=== PATIENT | male | born 1955 | race Two or more races ===

== ENCOUNTER → 2022-10-24 | Outpatient (CLI) | payer OTHER ==
[~2022-10-24] VITALS: Ht 167.6 cm; Wt 61.2 kg
== END | disposition home or self-care (01) ==
LOC: Rad HDHVI 09:40
PROVIDERS: ATTEND Internal Medicine Cardiovascular Disease
DX: I25.10 Atherosclerotic heart disease of native coronary artery without angina pectoris (principal); R07.9 Chest pain, unspecified; I25.2 Old myocardial infarction; I10 Essential (primary) hypertension; E11.9 Type 2 diabetes mellitus without complications; R42 Dizziness and giddiness; E78.5 Hyperlipidemia, unspecified; Z82.49 Family history of ischemic heart disease and other diseases of the circulatory system; Z95.1 Presence of aortocoronary bypass graft
CPT/HCPCS: 78452; 93017; 96374; A9500

== ENCOUNTER → 2022-10-25 | Outpatient (CLI) | payer OTHER | END | disposition home or self-care (01) | LOC: Rad HDHVI 07:54 | PROVIDERS: ATTEND Internal Medicine Cardiovascular Disease | DX: I08.1 Rheumatic disorders of both mitral and tricuspid valves (principal); I10 Essential (primary) hypertension | CPT/HCPCS: 93306 ==

== ENCOUNTER → 2023-02-27 | Outpatient (CLI) | payer OTHER ==
[~2023-02-27] MED LIST: ASPI-498 OR; ATOR-47 PO; CARV3.1240 PO; CLOP75TA70 PO; ISO60SRT PO; LOSA100T58 PO; METF-370 PO; TRAZ-227 PO
[2023-02-27 08:15] VITALS: BP 159/76; PULSE 55; RESP 20; O2SAT 99
[2023-02-27 08:30] VITALS: BP 158/62; PULSE 55; RESP 20; O2SAT 99
== END | disposition home or self-care (01) ==
LOC: CHF HDHVI 08:01
PROVIDERS: ATTEND Internal Medicine Cardiovascular Disease
DX: Z01.818 Encounter for other preprocedural examination (principal); I11.0 Hypertensive heart disease with heart failure; I50.33 Acute on chronic diastolic (congestive) heart failure; I20.0 Unstable angina
CPT/HCPCS: 93005; G0463

== ENCOUNTER 2023-03-02 06:56 | Day surgery (SDC) | payer OTHER, MEDICAID ==
[2023-02-27 08:58] LABS: Basophils # (auto) 0 10 ^3/uL (0-0.2); Basophils % (auto) 0.2 % (0.0-2.0); Eosinophils # (auto) 0 10 ^3/uL (0-0.8); Eosinophils % (auto) 0.3 % (0.0-7.0); Hematocrit 41.9 % (41.0-53.0); Hemoglobin 14.3 g/dL (13.5-17.5); Lymphocytes # (auto) 2.1 10 ^3/uL (0.4-5.4); Mean Corpuscular Hemoglobin 29.3 pg (28.0-32.0); Mean Corpuscular Hgb Conc. 34.1 g/dL (32.0-36.0); Mean Corpuscular Volume 85.8 fL (80.0-100.0); Monocytes # (auto) 0.4 10 ^3/uL (0-1.3); Monocytes % (auto) 6.4 % (0.0-12.0); Neutrophils # (auto) 3.9 10 ^3/uL (1.6-8.6); Neutrophils % (auto) 60.1 % (37.0-80.0); Nucleated Red Blood Cells % 0.1 %; Red Blood Cells 4.88 10^6/uL (4.5-5.90); White Blood Cell 6.5 10^3/uL (4.4-10.8)
[2023-02-27 09:20] LABS: INR 1.06 (0.9-1.15); Partial Thromboplastin Time 26.8 SEC (24.5-34.5); Prothrombin Time 11.1 sec (9.3-11.8)
[2023-02-27 09:32] LABS: Potassium 4.5 mmol/L (3.5-5.1)
[2023-02-27 09:39] LABS: BUN/Creatinine Ratio 18.4 (10.0-20.0); Calcium 9.1 mg/dL (8.5-10.1)
[2023-03-02] VITALS (7 sets, daily range): BP systolic 118–129; BP diastolic 58–70; PULSE 48–56; RESP 12; O2SAT 94–97
[~2023-03-02] VITALS: Ht 167.6 cm; Wt 61.2 kg
[2023-03-02] MEDS ORDERED: IOHEXOL 350 MG/ML 100ML IJ ONE ×2 (07:41→09:44)
[2023-03-02] MEDS ORDERED: fentaNYL CITRATE 100 MCG/2 ML VL ONE (09:43)
[2023-03-02] MEDS ORDERED: LIDOCAINE 2%HCL (LOCAL ANESTH.) INJ 20ML MDV ONE (09:44)
[2023-03-02] MEDS ORDERED: SODIUM CHL 0.9% 50 ML ONE (09:44)
[2023-03-02] MEDS ORDERED: MIDAZOLAM HCL 2MG/2ML 2ml VIAL (1mg/ml) ONE (09:44)
== END 2023-03-02 11:40 | disposition home or self-care (01) ==
LOC: CATH 06:56
PROVIDERS: ATTEND Internal Medicine Cardiovascular Disease
DX: I25.10 Atherosclerotic heart disease of native coronary artery without angina pectoris (principal); I25.2 Old myocardial infarction; E78.5 Hyperlipidemia, unspecified; E11.40 Type 2 diabetes mellitus with diabetic neuropathy, unspecified; Z88.0 Allergy status to penicillin; Z82.49 Family history of ischemic heart disease and other diseases of the circulatory system; Z79.82 Long term (current) use of aspirin; Z79.84 Long term (current) use of oral hypoglycemic drugs; Z79.899 Other long term (current) drug therapy
CPT/HCPCS: 36415; 80048; 85025; 85610; 85730; 93459; C1894; J1644; J2250; J3010; J7030; Q9967; 99152

== ENCOUNTER 2023-05-27 10:38 | Emergency (ER) | payer OTHER, MEDICAID ==
[~2023-05-27] VITALS: Ht 167.6 cm; Wt 63.4 kg
[2023-05-27] MEDS ORDERED: SODIUM CHLORIDE 0.9% 1,000 ML IV ONE (11:00)
[2023-05-27] MEDS ORDERED: ASPirin 81 mg TAB PO ONE (11:00)
[2023-05-27] MEDS ORDERED: cloNIDine HCL 0.1 MG TAB PO ONE (11:00)
[2023-05-27 11:18] LABS: Basophils # (auto) 0 10 ^3/uL (0-0.2); Basophils % (auto) 0.2 % (0.0-2.0); Eosinophils # (auto) 0 10 ^3/uL (0-0.8); Eosinophils % (auto) 0.2 % (0.0-7.0); Hematocrit 43.6 % (41.0-53.0); Hemoglobin 14.7 g/dL (13.5-17.5); Lymphocytes # (auto) 1.1 10 ^3/uL (0.4-5.4); Mean Corpuscular Hemoglobin 29.4 pg (28.0-32.0); Mean Corpuscular Hgb Conc. 33.6 g/dL (32.0-36.0); Mean Corpuscular Volume 87.3 fL (80.0-100.0); Monocytes # (auto) 0.3 10 ^3/uL (0-1.3); Monocytes % (auto) 5.8 % (0.0-12.0); Neutrophils # (auto) 3.4 10 ^3/uL (1.6-8.6); Neutrophils % (auto) 71.8 % (37.0-80.0); Nucleated Red Blood Cells % 0.1 %; Red Blood Cells 4.99 10^6/uL (4.5-5.90); Red Cell Distribution Width 14.3 % (11.8-14.3); White Blood Cell 4.8 10^3/uL (4.4-10.8)
[2023-05-27 11:20] LABS: Alanine Aminotransferase 35 U/L (7-40); Alkaline Phosphatase 90 U/L (46-116); Aspartate Aminotransferase 19 U/L (13-40); Calcium 9.5 mg/dL (8.7-10.4)
[2023-05-27 11:21] LABS: Albumin 4.9 g/dL (3.2-4.8); Anion Gap 6 (5-15); BUN/Creatinine Ratio 16.3 (10.0-20.0); Bilirubin, Total 0.8 mg/dL (0.2-1.0); Blood Urea Nitrogen 14 mg/dL (9-23); Carbon Dioxide 27 mmol/L (20-30); Chloride 103 mmol/L (98-107); Glucose 126 mg/dL (74-106); Magnesium 1.9 mg/dL (1.6-2.6); Potassium 4.2 mmol/L (3.5-5.1); Sodium 136 mmol/L (136-145); Total Protein 7.3 g/dL (5.7-8.2)
[2023-05-27 11:26] LABS: INR 1.08 (0.9-1.15); Partial Thromboplastin Time 28.7 SEC (24.5-34.5); Prothrombin Time 11.3 sec (9.3-11.8)
[2023-05-27 11:31] LABS: Urine Bacteria NONE SEEN /hpf (None Seen); Urine Blood Negative /uL (Negative); Urine Clarity Clear (Clear); Urine Color Colorless (Yellow); Urine Protein, UAD Negative (Negative); Urine Specific Gravity 1.011 (1.001-1.035); Urine Urobilinogen Normal (Negative); Urine WBC <1 /hpf (0 - 3); Urine pH 5.5 (5.0-8.0)
[2023-05-27 12:33] VITALS: BP 125/65
[2023-05-27 12:34] VITALS: PULSE 55; RESP 16; O2SAT 99
== END 2023-05-27 12:46 | disposition home or self-care (01) ==
LOC: ER 10:38
DX: I10 Essential (primary) hypertension (principal); E11.9 Type 2 diabetes mellitus without complications; E78.5 Hyperlipidemia, unspecified; I25.810 Atherosclerosis of coronary artery bypass graft(s) without angina pectoris; Z79.01 Long term (current) use of anticoagulants
CPT/HCPCS: 36415; 71046; 80053; 81001; 83735; 84443; 84484; 85025; 85610; 85730; 93005

== ENCOUNTER → 2023-05-31 | Outpatient (CLI) | payer OTHER ==
[2023-05-31 10:05] VITALS: BP 166/76; PULSE 70; RESP 16; O2SAT 96
[2023-05-31 10:32] VITALS: BP 150/74; PULSE 65; RESP 16; O2SAT 96
== END | disposition home or self-care (01) ==
LOC: CHF HDHVI 09:55
PROVIDERS: ATTEND Internal Medicine Cardiovascular Disease
DX: Z01.818 Encounter for other preprocedural examination (principal); R94.31 Abnormal electrocardiogram [ECG] [EKG]; I11.0 Hypertensive heart disease with heart failure; I50.43 Acute on chronic combined systolic (congestive) and diastolic (congestive) heart failure; R00.2 Palpitations; R00.1 Bradycardia, unspecified; I25.5 Ischemic cardiomyopathy
CPT/HCPCS: 93005; G0463

== ENCOUNTER 2023-06-01 09:55 | Day surgery (SDC) | payer OTHER, MEDICAID ==
[~2023-06-01] VITALS: Ht 167.6 cm; Wt 64.4 kg
[2023-06-01] VITALS (7 sets, daily range): BP systolic 133–144; BP diastolic 74–86; PULSE 60–65; RESP 11–18; TEMP 98; O2SAT 96–97
[~2023-06-01 09:55] MED LIST changes: -CARV3.1240 PO
[2023-06-01] MEDS ORDERED: VANCOMYCIN 1GM/250ML 250 ML IV ONE (10:30)
[2023-06-01] MEDS ORDERED: LIDOCAINE 2%HCL (LOCAL ANESTH.) INJ 20ML MDV ONE (14:36)
[2023-06-01] MEDS ORDERED: MIDAZOLAM HCL 2MG/2ML 2ml VIAL (1mg/ml) ONE (14:44)
[2023-06-01] MEDS ORDERED: VANCOMYCIN HCL 1000 MG VL ONE (14:44)
[2023-06-01] MEDS ORDERED: fentaNYL CITRATE 100 MCG/2 ML VL ONE (14:44)
== END 2023-06-01 17:15 | disposition home or self-care (01) ==
LOC: CATH 09:55
PROVIDERS: ATTEND Internal Medicine Cardiovascular Disease
DX: I49.5 Sick sinus syndrome (principal); I11.9 Hypertensive heart disease without heart failure; I25.2 Old myocardial infarction; I10 Essential (primary) hypertension; Z95.1 Presence of aortocoronary bypass graft; I44.0 Atrioventricular block, first degree; R06.02 Shortness of breath
CPT/HCPCS: 33208; 71045; C1785; C1898; J2250; J3010; J3370; J7030; 99152; 99153

== ENCOUNTER → 2023-07-14 | Outpatient (CLI) | payer MEDICAID, OTHER | END | disposition home or self-care (01) | LOC: Rad HDHVI 12:45 | PROVIDERS: ATTEND Internal Medicine Cardiovascular Disease | DX: I11.9 Hypertensive heart disease without heart failure (principal); R00.2 Palpitations | CPT/HCPCS: 93306 ==

== ENCOUNTER → 2024-05-17 | Outpatient (CLI) | payer OTHER ==
[~2024-05-17] MED LIST changes: +LOSA-535 PO; -LOSA100T58 PO
== END | disposition home or self-care (01) ==
LOC: Rad HDHVI 08:46
PROVIDERS: ATTEND Internal Medicine Cardiovascular Disease
DX: I11.0 Hypertensive heart disease with heart failure (principal); I50.23 Acute on chronic systolic (congestive) heart failure
CPT/HCPCS: 93306

== ENCOUNTER → 2024-07-03 | Outpatient (CLI) | payer OTHER, MEDICAID ==
[~2024-07-03] VITALS: Ht 167.6 cm; Wt 65.8 kg
--- NOTE | 2024-07-09 13:51 | DVHSR ---
APPROVED REPORT Exam: Nuclear Stress Test Indication: Pre-Operative CV evaluation Ht: 5 ft 6 in Wt: 143 lbs BSA: 1.73 m2 HR: 74 bpm BP: 163/82 mmHg BMI: 23.07 Rhythm: NSR Medical History Medical History: VA, CABG, Stent, Pacemaker, HTN, Hyperlipidemia, Diabetes, Palpitations, Chest pain, CHF Medications: Atorvastatin, Losartan, Clopidogrel, Metformin, Aspirin, Meclizine, Coreg, Nitro, Clonid ine, Magnesium Glycinate Allergies: Ampicillin Cardiac Risk Factors: FHX of CAD Stress Test Details Stress Test: Exercise stress testing was performed using a Vega protocol. HR Resting HR: 74 bpmMax Heart Rate (APMHR): 152.989330 bpm Max HR Achieved: 137 bpmTarget HR (85% APMHR): 129.690788 bpm % of APMHR: 90.13 Recovery HR: 75 bpm HR response to stress: Normal HR response to stress BP Resting BP: 157/79 mmHg Max BP: 215/110 mmHg Recovery BP: 146/77 mmHg BP response to stress: Resting hypertenstion- exaggerated response. ECG Resting ECG: Sinus Rhythm Stress ECG: Sinus Tachycardia Arrhythmia: APC's, VPC's Recovery ECG: Sinus Rhythm Clinical Reason for Termination: Target HR achieved Stress Symptoms: None Exercise duration: 7 min 30 sec Exercise capacity: 10.1 METs Stress ECG Conclusion CLINICAL RESPONSE NON ISCHEMIC ECG RESPONSE NON ISCHEMIC EF >55% LESS THAN 10% LIKELIHOOD FOR STRESS INDUCED ISCHEMIA NM EXAM: Myocardial Perfusion REST/STRESS Imaging Protocol: Rest Tc-99m/Stress Tc-99m 1 day Resting Data Rest SPECT myocardial perfusion imaging was performed in supine position 30 minutes following the int ravenous injection of 10.82 mCi of Tc-99m Sestamibi. Time of rest injection: 1305 Time of rest imagin Administration Route: IV Administration Site: Right AC Exercise Stress At peak stress, the patient was injected intravenously with 33 mCi of Tc-99m Sestamibi. Time of stress injection: 1404 Time of stress imagin Administration Route: IV Administration Site: Right AC Heart Rate at time of stress injection: 133 bpm. Patient continued to exercise for 0.5 minute(s). Gated Stress SPECT was performed 15 minutes after stress injection. The images were gated to evaluate regional wall motion and calculate left ventricular ejection fracti on. Comments Cardiolite injection at 7 minutes, 13 seconds into test. Study Data Post stress, the left ventricular ejection was 56%.. Nuclear Conclusion CLINICAL RESPONSE NON ISCHEMIC ECG RESPONSE NON ISCHEMIC EF >55% LESS THAN 10% LIKELIHOOD FOR STRESS INDUCED ISCHEMIA
== END | disposition home or self-care (01) ==
LOC: Rad HDHVI 12:34
PROVIDERS: ATTEND Internal Medicine Cardiovascular Disease
DX: Z01.810 Encounter for preprocedural cardiovascular examination (principal); R00.2 Palpitations; I25.10 Atherosclerotic heart disease of native coronary artery without angina pectoris; R07.89 Other chest pain; E78.5 Hyperlipidemia, unspecified; E11.9 Type 2 diabetes mellitus without complications; I25.2 Old myocardial infarction; Z95.820 Peripheral vascular angioplasty status with implants and grafts; Z95.1 Presence of aortocoronary bypass graft; Z82.49 Family history of ischemic heart disease and other diseases of the circulatory system; Z95.0 Presence of cardiac pacemaker; Z88.0 Allergy status to penicillin
CPT/HCPCS: 78452; 93017; 96374; A9500

== ENCOUNTER 2024-07-17 17:23 | Emergency (ER) | payer OTHER, MEDICAID ==
[~2024-07-17] VITALS: Ht 167.6 cm; Wt 66.0 kg
[2024-07-17 17:30] VITALS: BP 141/88; RESP 16; TEMP 98.5; O2SAT 96
[2024-07-17 17:43] VITALS: PULSE 74
[2024-07-17 19:16] LABS: Basophils # (auto) 0 10 ^3/uL (0-0.2); Basophils % (auto) 0.2 % (0.0-2.0); Eosinophils # (auto) 0 10 ^3/uL (0-0.8); Eosinophils % (auto) 0.5 % (0.0-7.0); Hematocrit 40.3 % (41.0-53.0); Lymphocytes # (auto) 2.1 10 ^3/uL (0.4-5.4); Mean Corpuscular Hgb Conc. 34.7 g/dL (32.0-36.0); Mean Corpuscular Volume 89.2 fL (80.0-100.0); Monocytes # (auto) 0.4 10 ^3/uL (0-1.3); Neutrophils % (auto) 54.3 % (37.0-80.0); Nucleated Red Blood Cells % 0.1 %; Platelet Count (auto) 174 10^3/uL (140-450); Red Blood Cells 4.52 10^6/uL (4.5-5.90); Red Cell Distribution Width 13.1 % (11.8-14.3); White Blood Cell 5.6 10^3/uL (4.4-10.8)
[2024-07-17 19:38] LABS: Albumin 4.5 g/dL (3.2-4.8); Alkaline Phosphatase 98 U/L (46-116); Anion Gap 6 (5-15); Aspartate Aminotransferase 21 U/L (13-40); BUN/Creatinine Ratio 19.7 (10.0-20.0); Blood Urea Nitrogen 15 mg/dL (9-23); Calcium 10.2 mg/dL (8.7-10.4); Carbon Dioxide 29 mmol/L (20-31); Chloride 103 mmol/L (98-107); Glucose 94 mg/dL (74-106); Potassium 4.2 mmol/L (3.5-5.1); Sodium 138 mmol/L (136-145)
[2024-07-17 19:39] LABS: Bilirubin, Total 0.8 mg/dL (0.2-1.0); Total Protein 6.7 g/dL (5.7-8.2)
[2024-07-17 19:42] LABS: Alanine Aminotransferase 42 U/L (7-40)
--- NOTE | 2024-07-17 20:15 | ED.PDOC ---
History of Present Illness HPI Comments A 68 year old male brought in by EMS presents to the ED with a chief complaint of high blood pressure onset 4 days. Patient states he has been checking his BP at home and has been elevated the past 4 days. He has taken his BP medication but has not noticed any improvement. Patient has an appointment with Car diologist on 07/22/2024 for stress test results. He woke up today experiencing nausea, shortness of breath that have now resolved and is currently experiencing headache. He has a past medical history of HTN, HLD, DM and denies chest past, abdominal pain, SOB, N/V/D. No other symptoms or modifying factors present at this time. Chief Complaint: Dizziness Time Seen by MD: 20:06 Primary Care Provider: JANELL Camilo Notes: Medications, Allergies Allergies: Coded Allergies: Penicillins (Verified Allergy, Intermediate, 02/27/23) Home Meds Active Scripts Meclizine Hcl (Meclizine Hcl) 12.5 Mg Tab, 12.5 MG PO Q6HP PRN for 20 Days, #30 MG Prov:SHIVANI GARLAND MD 07/17/24 Reported Medications Trazodone Hcl (Trazodone Hcl) 50 Mg Tab, 50 MG PO HS for INSOMNIA, MG 02/27/23 Aspirin (ASPIRIN 81) 81 Mg Tab, 81 MG OR DAILY, TAB 02/27/23 Metformin Hydrochloride (Metformin Hcl) 500 Mg Tab, 500 MG PO DAILY for DIABETES for 30 Days, MG 02/27/23 Isosorbide Mononitrate (Isosorbide Mononitrate ER) 60 Mg Tab, 30 MG PO DAILY for ANGINA, TAB 02/27/23 Clopidogrel Bisulfate (CLOPIDOGREL) 75 Mg Tab, 75 MG PO DAILY for S/P CABG for 30 Days, MG 02/27/23 Losartan Potassium (Losartan Potassium) 100 Mg Tab, 100 MG PO DAILY for HTN for 30 Days, MG 02/27/23 Atorvastatin Calcium (ATORVASTATIN CALCIUM) 80 Mg Tab, 1 TAB PO DAILY for HIGH CHOLESTEROL, #30 TAB 5 Refills 02/27/23 Information Source: Patient Mode of Arrival: EMS Severity: Moderate Timing: Hours Duration: Since onset Prehospital treatment: None Past Medical History PAST MEDICAL HISTORY: DM, High Lipids, HTN Surgical History: Appendectomy, CABG Family History Family History: Unknown Social History Smoker: Non-Smoker Alcohol: Denies ETOH Use Drugs: Denies Drug Use Lives In: Home Constitutional: denies: chills, diaphoresis, fatigue, fever, malaise, sweats, weakness, others EENTM: denies: blurred vision, double vision, ear bleeding, ear discharge, ear drainage, ear pain, ear ringing, eye pain, eye redness, hearing loss, mouth pain, mouth swelling, nasal discharge, nose bleeding, nose congestion, nose pain, photophobia, tearing, throat pain, throat swelling, voice changes, others Respiratory: reports: shortness of breath; denies: cough, hemoptysis, orthopnea, SOB at rest, SOB with excertion, stridor, wheezing, others Cardiovascular: denies: chest pain, dizzy spells, diaphoresis, Dyspnea on e xertion, edema, irregular heart beat, left arm pain, lightheadedness, palpitations, PND, syncope, others Gastrointestinal: denies: abdomen distended, abdominal pain, blood streaked bowels, constipated, diarrhea, dysphagia, difficulty swallowing, hematemesis, melena, nausea, poor appetite, poor fluid intake, rectal bleeding, rectal pain, vomiting, others Genitourinary: denies: burning, dysuria, flank pain, frequency, hematuria, incontinence, penile discharge, penile sore, pain, testicle pain, testicle swelling, urgency, others Neurological: reports: dizziness, headache; denies: fainting, left sided numbness, left sided weakness, numbness, paresthesia, pre-existing deficit, right sided numbness, right sided weakness, seizure, speech problems, tingling, tremors, weakness, others Musculoskeletal: denies: back pain, gout, joint pain, joint swelling, muscle pain, muscle stiffness, neck pain, others Integumetry: denies: bruises, change in color, change in hair/nails, dryness, laceration, lesions, lumps, rash, wounds, others Allergic/Immunocompromised: denies: Difficulty Healing, Frequent Infections, Hives, Itching, others Hematologic/Lymphatic: denies: anemia, blood clots, easy bleeding, easy bruisin g, swollen glands, others Endocrine: denies: excessive hunger, excessive sweating, excessive thirst, excessive urination, flushing, intolerance to cold, intolerance to heat, unexplained weight gain, unexplained weight loss, others Psychiatric: denies: anxiety, bipolar disorder, depression, hopeless, panic disorder, schizophrenia, sleepless, suicidal, others All Other Systems: Reviewed and Negative Physical Exam General Appearance: No Apparent Distress, Normal HEENT: Normal ENT Inspection, Pharynx Normal, TMs Normal Neck: Full Range of Motion, Non-Tender, Normal, Normal Inspection Respiratory: Chest Non-Tender, Lungs Clear, No Accessory Muscle Use, No Respiratory Distress, Normal Breath Sounds Cardiovascular: No Edema, No JVD, No Murmur, No Gallop, Normal Peripheral Pulses, Regular Rate/Rhythm Breast Exam: Deferred Gastrointestinal: No Organomegaly, Non Tender, No Pulsatile Mass, Normal Bowel Sounds, Soft Genitalia: Deferred Pelvic: Deferred Rectal: Deferred Extremities: No calf tenderness, Normal capillary refill, Normal inspection, Normal range of motion, Non-tender, No pedal edema Musculoskeletal : Apperance: Normal Neurologic: Alert, mental hygienist II-XII nml as Tested, No Motor Deficits, Normal Affect, Normal Mood, No Sensory Deficits Cerebellar Function: Normal Reflexes: Normal Skin: Dry, Normal Color, Warm Lymphatic: No Adenopathy Was a procedure done? Was a procedure done?: No Differential Dx Considerations may include: stroke, end organ failure, subarachnoid hemorrhage, myocardial infarction, acute renal failure and others X-Ray, Labs, Meds, VS Vital Signs Date Time Temp Pulse Resp B/P (MAP) Pulse Ox O2 Delivery O2 Flow Rate FiO2 07/17/24 21:00 Room Air 07/17/24 17:43 74 07/17/24 17:30 98.5 71 16 141/88 (105) 96 07/17/24 17:30 98.5 71 16 141/88 (105) 96 98.5 Lab Test 07/17/24 18:50 Range/Units White Blood Count 5.6 4.4-10.8 10^3/uL Red Blood Count 4.52 4.5-5.90 10^6/uL Hemoglobin 14.0 13.5-17.5 g/dL Hematocrit 40.3 L 41.0-53.0 % Mean Corpuscular Volume 89.2 80.0-100.0 fL Mean Corpuscular Hemoglobin 31.0 28.0-32.0 pg Mean Corpuscular Hemoglobin Concent 34.7 32.0-36.0 g/dL Red Cell Distribution Width 13.1 11.8-14.3 % Platelet Count 174 140-450 10^3/uL Mean Platelet Volume 7.7 6.9-10.8 fL Neutrophils (%) (Auto) 54.3 37.0-80.0 % Lymphocytes (%) (Auto) 37.0 10.0-50.0 % Monocytes (%) (Auto) 8.0 0.0-12.0 % Eosinophils (%) (Auto) 0.5 0.0-7.0 % Basophils (%) (Auto) 0.2 0.0-2.0 % Neutrophils # (Auto) 3.0 1.6-8.6 10 ^3/uL Lymphocytes # (Auto) 2.1 0.4-5.4 10 ^3/uL Monocytes # (Auto) 0.4 0-1.3 10 ^3/uL Eosinophils # (Auto) 0 0-0.8 10 ^3/uL Basophils # (Auto) 0 0-0.2 10 ^3/uL Nucleated Red Blood Cells 0.1 % Sodium Level 138 136-145 mmol/L Potassium Level 4.2 3.5-5.1 mmol/L Chloride Level 103 98-107 mmol/L Carbon Dioxide Level 29 20-31 mmol/L Anion Gap 6 5-15 Blood Urea Nitrogen 15 9-23 mg/dL Creatinine 0.76 0.700-1.30 mg/dL Glomerular Filtration Rate Calc 98 >90 mL/min BUN/Creatinine Ratio 19.7 10.0-20.0 Serum Glucose 94 74-106 mg/dL Calcium Level 10.2 8.7-10.4 mg/dL Total Bilirubin 0.8 0.2-1.0 mg/dL Aspartate Amino Transferase (AST) 21 13-40 U/L Alanine Aminotransferase (ALT) 42 H 7-40 U/L Alkaline Phosphatase 98 46-116 U/L Troponin I High Sensitivity < 3 L </=54 ng/L Total Protein 6.7 5.7-8.2 g/dL Albumin 4.5 3.2-4.8 g/dL Time of 1ST Reevaluation: 20:36 Reevaluation 1ST: Unchanged Time of 2ND Reevaluation: 22:00 Reevaluation 2ND: Improved Patient Education/Counseling: Diagnosis, Treatment, Prognosis Family Education/Counseling: No Family Present Additional Information HI DATA VOL/COMPLEXITY Ordered tests: LAB, EKG, Reviewed results: CBC, CMP, TROP interpreted results: EKG discuss tx/results: Patient, medical personnel Departure 1 Departure Time of Disposition: 22:00 Impression: Primary Impression: Dizziness Additional Impression: Uncontrolled hypertension Disposition: HOME / SELF CARE / HOMELESS Condition: Stable e-Prescriptions Meclizine Hcl (Meclizine Hcl) 12.5 Mg Tab 12.5 MG PO Q6HP PRN for 20 Days, #30 MG Prov: SHIVANI GARLAND MD 07/17/24 Discharged With: Self Critical Care Note Critical Care Time?: No Stability Stability form required: No Heart Score Heart Score: Heart Score Response (Comments) Value History Slightly Suspicious 0 EKG Normal 0 Age >65 2 Risk Factors 1 or 2 risk factors 1 Troponin Normal limit 0 Total 3 I personally scribed for SHIVANI GARLAND MD ([email or web address]) on 07/17/24 at 20:15. Electronically submitted by Liliana Vasquez ([email or web address]). I personally scribed for SHIVANI GARLAND MD ([email or web address]) on 07/17/24 at 20:18. Electronically submitted by Liliana Vasquze ([email or web address]). SHIVANI GARLAND MD Jul 17, 2024 20:15
[2024-07-17] MEDS ORDERED: MECL12.586 PO (20:40)
--- NOTE | 2024-07-19 13:44 | ECG ---
[facility] Test Date: 2024-07-17 Test Time: 17:37:57 Pat Name: ABNER PATEL Department: ER Room: Gender: M [employer] Ironer: : 1955 Requested By: SCOTT OWEN Order Number: [id number] Reading MD: Ronnie Grady Measurements Intervals [place] Rate: 74 P: 0 WA: 215 QRS: 103 QRSD: 92 T: 28 QT: 412 QTc: 457 Interpretive Statements Atrial-paced complexes Borderline prolonged WA interval Right axis deviation Electronically Signed On 07-19-2024 16:44:05 PST by Ronnie Grady Please click the below link to view image of tracing.
== END 2024-07-17 21:02 | disposition home or self-care (01) ==
LOC: EDBD 17:23 → ER 17:23
DX: I10 Essential (primary) hypertension (principal); R42 Dizziness and giddiness; E11.9 Type 2 diabetes mellitus without complications; E78.5 Hyperlipidemia, unspecified; Z90.49 Acquired absence of other specified parts of digestive tract; Z95.1 Presence of aortocoronary bypass graft; Z88.0 Allergy status to penicillin; Z79.02 Long term (current) use of antithrombotics/antiplatelets; Z79.82 Long term (current) use of aspirin; Z79.84 Long term (current) use of oral hypoglycemic drugs; Z79.899 Other long term (current) drug therapy
CPT/HCPCS: 36415; 80053; 84484; 85025; 93005

== ENCOUNTER → 2024-09-19 | Outpatient (CLI) | payer OTHER, MEDICAID ==
[~2024-09-19] MED LIST changes: +IOHEXOL 350 MG/ML 100ML IJ ONE; +MECL12.586 PO
[2024-09-19 10:45] VITALS: BP 128/67; PULSE 74; RESP 18; O2SAT 99
[2024-09-19 11:01] VITALS: BP 147/64; PULSE 85; RESP 18; O2SAT 99
--- NOTE | 2024-09-19 17:20 | DVH ---
Exam: CT CT AB PEL WITH IV CON ONLY History: ABD PAIN COMPARISON: None Technique: Multidetector spiral CT of the abdomen and pelvis was performed from lung bases to pubic symphysis. Intravenous contrast was administered during this examination. Portal venous imaging was obtained. Axial, coronal and sagittal multiplanar reformats were performed by the technologist on a separate workstation. Radiation Dose : Abdomen/Pelvis: CTDIvol 4.01 mGy, DLP 192.24 mGy*cm. CONTRAST: Type of contrast: Omni 300 Contrast injected: 100 mL Findings: Lung Bases: Curvilinear atelectasis/ scarring in the left lung base. Liver: Hypoenhancing lesion in the dome of the liver measuring up to 13 mm. Gallbladder and biliary Tree: Unremarkable Spleen: Unremarkable Pancreas: The pancreas is normal in appearance without focal lesions or abnormal enhancement. Adrenal Glands: Unremarkable Kidneys: No hydronephrosis. Bladder: Unremarkable Bowel: The stomach is grossly normal in appearance. Small bowel and colon are normal in caliber and d istribution. The appendix is not visualized; however, no secondary findings of acute appendicitis abhijit ntified. Ascites: Absent Lymphadenopathy: No mesenteric, retroperitoneal or periportal lymphadenopathy. Abdominal wall and Mesentery: Unremarkable. Vasculature: The visualized abdominal aorta is normal in size and caliber. Abdominal and pelvic vess els demonstrate normal enhancement. Pelvic Organs: Unremarkable Musculoskeletal: No aggressive focal bony lesions, acute fractures or dislocation. IMPRESSION: 1. No acute abdominal or pelvic finding. Hypoenhancing lesion in the dome of the liver could represen t a hemangioma or cyst. This can be further evaluated with MRI of the abdomen with contrast. Radiation optimization: All CT scans at this facility use at least one of these dose optimization shelby hniques: Automated exposure control mA and/or kV adjustment per patient size (includes targeted exams where dose is matched to clinical indication) or iterative reconstruction. HS:Y
== END | disposition home or self-care (01) ==
LOC: Rad HDHVI 09:46
PROVIDERS: ATTEND Internal Medicine Cardiovascular Disease
DX: K76.9 Liver disease, unspecified (principal); R10.9 Unspecified abdominal pain
CPT/HCPCS: 74177; 93306; G0463; Q9967

== ENCOUNTER 2025-01-14 09:35 | Outpatient (CLI) | payer OTHER, MEDICAID ==
[~2025-01-14 09:35] MED LIST changes: -IOHEXOL 350 MG/ML 100ML IJ ONE
[2025-01-14 09:45] VITALS: BP 125/72; PULSE 82; RESP 18; O2SAT 96
[2025-01-14 09:53] VITALS: BP 117/64; PULSE 73; RESP 16; O2SAT 96
[2025-01-14] MEDS ORDERED: CARV25TA55 PO (11:21)
[2025-01-14] MEDS ORDERED: AMIO200T33 PO (11:21)
[2025-01-14] MEDS ORDERED: MELA10CA OR (11:25)
--- NOTE | 2025-01-14 13:52 | DVH ---
XY CHEST TWO VIEWS ROUTINE CLINICAL HISTORY: PRE OP CARDIAC CLEARANCE COMPARISON: XY CHEST TWO VIEWS ROUTINE on DOS: 05/27/23 TECHNIQUE: Frontal and lateral view of the chest was obtained FINDINGS: Lines and Tubes: None Lungs: No focal consolidation. Pleura: No effusion. No pneumothorax. Cardiomediastinal contours: Unremarkable Bones: No acute osseous abnormality. IMPRESSION: No acute cardiopulmonary disease.
== END 2025-01-14 17:00 | disposition home or self-care (01) ==
LOC: Rad HDHVI 09:35
PROVIDERS: ATTEND Internal Medicine Cardiovascular Disease
DX: Z01.818 Encounter for other preprocedural examination (principal)
CPT/HCPCS: 71046; 93005; G0463

== ENCOUNTER 2025-01-16 07:16 | Day surgery (SDC) | payer OTHER, MEDICAID ==
[2025-01-14 12:02] LABS: Basophils # (auto) 0 10 ^3/uL (0-0.2); Basophils % (auto) 0.3 % (0.0-2.0); Eosinophils # (auto) 0 10 ^3/uL (0-0.8); Eosinophils % (auto) 0.3 % (0.0-7.0); Hematocrit 44.3 % (41.0-53.0); Hemoglobin 15.2 g/dL (13.5-17.5); Lymphocytes # (auto) 1.7 10 ^3/uL (0.4-5.4); Lymphocytes % (auto) 33.2 % (10.0-50.0); Mean Corpuscular Hemoglobin 30.9 pg (28.0-32.0); Mean Corpuscular Hgb Conc. 34.3 g/dL (32.0-36.0); Monocytes # (auto) 0.4 10 ^3/uL (0-1.3); Monocytes % (auto) 7.8 % (0.0-12.0); Neutrophils % (auto) 58.4 % (37.0-80.0); Nucleated Red Blood Cells % 0.1 %; Platelet Count (auto) 190 10^3/uL (140-450); Red Blood Cells 4.92 10^6/uL (4.5-5.90); Red Cell Distribution Width 13.6 % (11.8-14.3); White Blood Cell 5.1 10^3/uL (4.4-10.8)
[2025-01-14 12:16] LABS: INR 1.03 (0.9-1.15); Partial Thromboplastin Time 26.5 SEC (24.5-34.5); Prothrombin Time 10.9 sec (9.3-11.8)
[2025-01-14 12:43] LABS: Alkaline Phosphatase 69 U/L (46-116); Anion Gap 6 (5-15); Aspartate Aminotransferase 21 U/L (<34); Blood Urea Nitrogen 15 mg/dL (9-23); Carbon Dioxide 28 mmol/L (20-31); Potassium 4.5 mmol/L (3.5-5.1); Sodium 141 mmol/L (136-145); Total Protein 7.3 g/dL (5.7-8.2)
[2025-01-14 12:44] LABS: Alanine Aminotransferase 45 U/L (7-40); Albumin 4.8 g/dL (3.2-4.8); Bilirubin, Total 0.5 mg/dL (0.2-1.0); Chloride 107 mmol/L (98-107); Glucose 110 mg/dL (74-106)
[~2025-01-16] VITALS: Ht 167.6 cm; Wt 64.9 kg
[~2025-01-16 07:16] MED LIST changes: +AMIO200T33 PO; -ASPI-498 OR; -ATOR-47 PO; +CARV25TA55 PO; -ISO60SRT PO; -MECL12.586 PO; +MELA10CA OR; -METF-370 PO; -TRAZ-227 PO
[2025-01-16] MEDS: IOHEXOL 350 MG/ML 100ML IJ ONE (10:42)
[2025-01-16] MEDS: ANGIOMAX 250 MG VIAL IV ONE (10:43)
[2025-01-16] MEDS: LIDOCAINE 2%HCL (LOCAL ANESTH.) INJ 20ML MDV ONE (10:43)
[2025-01-16] MEDS: fentaNYL CITRATE 100 MCG/2 ML VL ONE (10:43)
[2025-01-16] MEDS: MIDAZOLAM HCL 2MG/2ML 2ml VIAL (1mg/ml) ONE (10:43)
[2025-01-16] MEDS: SODIUM CHL 0.9% 0 ML ONE (10:43)
[2025-01-16 11:27] VITALS: BP 133/82; PULSE 84; RESP 11; TEMP 97.7; O2SAT 98
[2025-01-16 12:00] VITALS: BP 120/72; PULSE 74; RESP 12; O2SAT 96
[2025-01-16 12:15] VITALS: BP 126/71; PULSE 75; RESP 14; O2SAT 96
--- NOTE | 2025-01-16 12:16 | DVHDS ---
DATE OF DISCHARGE: 01/16/2025 HOSPITAL COURSE: The patient is now being discharged home following coronary angiography. He has a lot of atrial arrhythmia that needs to be evaluated and treated, but definitely not because of ischemic threshold. The saphenous vein graft to the OM is patent. Saphenous vein graft to the PDA was patent and TRIMBLE to the LAD was patent. EF is around 50%. He is clinically stable, may be discharged home. Follow up with me in 1 week. Stable at the time discharge. DISPOSITION: Home. ACTIVITY: As instructed. DIET: 2-gram sodium diet. Zen Magdaleno MD SA/PARESH TID: [id number] RECEIPT: [id number]
--- NOTE | 2025-01-16 12:18 | DVHHP ---
ADMIT DATE: 01/16/2025 HISTORY OF PRESENT ILLNESS: The patient with a history of coronary artery disease, history of coronary artery bypass grafting in [facility] 3 years ago. He had TRIMBLE to the LAD, saphenous vein graft to the OM and saphenous vein graft to the PDA. The patient has noticed that since June, his energy level has gone down. He gets extremely short of breath. Echocardiogram shows an ejection fraction of around 55%, but he is having runs of atrial tachycardia, AV tamie reentry tachycardia as well as atrial fibrillation. There are short runs. Therefore, it is difficult to ascertain whether it is atrial fibrillation. There are short runs . He is on amiodarone 200 mg daily and since then his symptoms have improved. I have interrogated the AICD. Underlying rhythm is AFib versus SVT. The patient should undergo left heart catheterization because of progressive symptoms of shortness of breath, lethargy and fatigue and runs of atrial tachycardias. REVIEW OF SYSTEMS: Unremarkable. No CVA. No seizure disorder. No history of movement disorder. No visual disturbances. No hearing deficit. No GI symptomatology. No bleeding complications. No bleeding diathesis. No history of COPD. No history of lung disease. No history of any peripheral vascular disease as well. PHYSICAL EXAMINATION: VITAL SIGNS: Blood pressure is 138/80, pulse of 70, O2 saturation 98% on room air. HEENT: Pupils are reactive. Funduscopic exam is benign. Sclerae anicteric. Extraocular muscles are intact. NECK: Supple. No nuchal rigidity. No cervical adenopathy. No supraclavicular adenopathy. Carotid pulses are 2+ symmetrical. No JVD appreciated. PULMONARY: Clear to auscultation. Tympanic to percussion. No rhonchi or wheezes. No egophony. CARDIOVASCULAR: Regular rate without S3, without S4 . ABDOMEN: Soft and nontender. Normal bowel sounds. EXTREMITIES: Unremarkable. NEUROLOGIC: The patient is intact. ASSESSMENT AND PLAN: The patient has recurrent supraventricular tachyarrhythmia. Etiology unknown. Therefore, ischemic etiology should be ruled out. Left heart catheterization should be performed. We will make further recommendations after. Zen Magdaleno MD SA/PARESH/REESE TID: [id number] RECEIPT: [id number]
--- NOTE | 2025-01-16 12:27 | DVHOP ---
DATE OF SURGERY: 01/16/2025 PROCEDURES PERFORMED: * Selective left and right coronary angiography. * Angiography of saphenous vein grafts to the OM and PDA. * Angiography of the left subclavian and left internal mammary artery. * Ventriculogram. * Conscious sedation. DESCRIPTION OF PROCEDURE: The patient was prepped and draped in a sterile condition. 1% Xylocaine used to anesthetize the right groin. Using a Cook needle, the right femoral artery was engaged with Seldinger technique, a 6-Portuguese sheath in the right femoral artery. Using a 6-Portuguese JL4 catheter and a 6-Portuguese JR4 catheter, selective left and right coronary angiography was performed. Using a 6-Portuguese JR4 catheter, angiography of the saphenous vein graft to the PDA and TRIMBLE was performed as well as subclavian. Then, left coronary bypass catheter was used to cannulate the saphenous vein graft to the OM. There were no complications. Ventriculogram was done using 6-Portuguese pigtail catheter. RESULTS: * The patient's ejection fraction around 50%. * LVEDP of 18-20 mmHg. * Patent left main. * Left anterior descending artery has a 95% proximal narrowing. * TRIMBLE to the LAD was patent. * Circumflex has approximately 80-90% narrowing. * Saphenous vein graft to obtuse marginal 1 was still patent. * Right coronary artery was distally occluded. * Saphenous vein graft to the PDA was patent. CONCLUSION: At this time, conservative medical management, continue aggressive medical management. He, because of the atrial tachycardia, maybe medical management should be initiated such as amiodarone or beta-som or combination. We will continue to follow the patient. Stable at the time. Zen Magdaleno MD SA/TRINH TID: [id number] RECEIPT: [id number]
[2025-01-16 12:30] VITALS: BP 111/64; PULSE 73; RESP 12; O2SAT 94
[2025-01-16 12:45] VITALS: BP 118/66; PULSE 76; RESP 12; O2SAT 96
[2025-01-16 13:15] VITALS: BP 129/72; PULSE 76; RESP 14; O2SAT 97
== END 2025-01-16 13:35 | disposition home or self-care (01) ==
LOC: CATH 07:16
PROVIDERS: ATTEND Internal Medicine Cardiovascular Disease
DX: I25.10 Atherosclerotic heart disease of native coronary artery without angina pectoris (principal); R06.02 Shortness of breath; R53.83 Other fatigue; I47.19 Other supraventricular tachycardia; Z79.899 Other long term (current) drug therapy; Z95.1 Presence of aortocoronary bypass graft
CPT/HCPCS: 36415; 80053; 85025; 85610; 85730; 93459; C1725; C1760; C1894; J1644; J2250; J3010; Q9967; 99152